=== PATIENT | female | born 1955 | race Caucasian/White ===

== ENCOUNTER 2024-11-10 02:46 | Emergency (ER) | payer OTHER, MEDICARE ==
[~2024-11-10] VITALS: Ht 167.6 cm; Wt 69.0 kg
[2024-11-10 02:48] VITALS: TEMP 37.1; O2SAT 98
[2024-11-10] MEDS: LIDOCAINE 5% PATCH TOP SCH (03:30)
[2024-11-10] MEDS: ACETAMINOPHEN 325MG TABLET PO ONE (03:43)
[2024-11-10] MEDS ORDERED: LIDO-53 TP (04:44)
[2024-11-10] MEDS ORDERED: NAPR-1176 MT (04:44)
[2024-11-10 05:08] VITALS: BP 118/97; PULSE 62; RESP 16; O2SAT 97
== END 2024-11-10 05:15 | disposition home or self-care (01) ==
LOC: ER 03:12
DX: S09.8XXA Other specified injuries of head, initial encounter (principal); R51.9 Headache, unspecified; Z79.1 Long term (current) use of non-steroidal anti-inflammatories (NSAID); V47.5XXA Car driver injured in collision with fixed or stationary object in traffic accident, initial encounter; W22.01XA Walked into wall, initial encounter; Y93.89 Activity, other specified; Y92.410 Unspecified street and highway as the place of occurrence of the external cause; Y99.8 Other external cause status
CPT/HCPCS: 71250; 99284